=== PATIENT | male | born 1970 | race African-American/Black ===

== ENCOUNTER → 2020-04-15 | Day surgery (SDC) | payer OTHER ==
[2020-04-14 12:04] VITALS: BMI 29.7
[~2020-04-15] MED LIST: ACETAMINOPHEN 325 MG TABLET (FP) PO PRN; CIPROFLOXACIN HCL 0.3% OPHTH 2.5ML BOTTLE OP SCH; EPINEPHrine/PF 1 MG/1 ML (1:1,000) AMPULE ONE; KETOROLAC TROMETHAMINE 0.5% EYE DROP 1 DROP DROPS OP SCH; LIDOCAINE HCL/PF 1% SDV 5ML VIAL ONE; PHENYLEPHRINE 2.5% OPHTH SOLN 15 ML BOTTLE OP SCH; TETRACAINE 0.5% OPHTH SOLN 2 ML BOTTLE ONE; TOBRAMYCIN/DEXAMETHASONE OPHTH. OINTMENT 1 TUBE ONE; TROPICAMIDE 1% OPHTH SOLN 15 ML BOTTLE OP SCH
== END | disposition home or self-care (01) ==
LOC: JASU-SURG 06:32
PROVIDERS: ATTEND Ophthalmology
DX: Z53.8 Procedure and treatment not carried out for other reasons (principal)